=== PATIENT | male | born 1980 | race Caucasian/White ===

== ENCOUNTER 2024-06-19 16:40 | Emergency (ER) | payer SELFPAY ==
[~2024-06-19] VITALS: Ht 175.2 cm; Wt 53.1 kg
[~2024-06-19 16:40] MED LIST: AMOXICILLIN500 M2 PO; ANAPROX DS550 MG PO; CLINDAMYCIN HC300 MG PO; HYDROCODONE BIT1 T11 PO; NAPROSYN500 MG PO; NORCO 10-325 T1 EACH PO; PENICILLIN VK500 MG PO; Peridex 473 ML473 ML PO
[2024-06-19] MEDS ORDERED: MORPHINE Sulfate 2 MG/ML SYR IV ONE (17:35)
[2024-06-19] MEDS ORDERED: Ketorolac Tromethamine 15 MG/ML VIAL IV ONE (17:35)
[2024-06-19 17:49] LABS: MEAN CELL VOLUME 72.6 fl (80.0-94.0); MEAN CORPUSCULAR HGB 18.3 pg (27.0-31.0); MEAN CORPUSCULAR HGB CONC 25.1 g/dl (33.0-37.0); MEAN PLATELET VOLUME 10.4 fl (9.6-12.3); PLATELET COUNT AUTOMATED 555 10*3/uL (130-400); RED BLOOD COUNT 2.63 10*6/uL (4.50-5.90); RED CELL DISTRI WIDTH 17.8 % (0-14.5); WHITE BLOOD COUNT 9.3 10*3/uL (4.8-10.8)
[2024-06-19 17:52] LABS: HEMATOCRIT 19.1 % (42.0-52.0); MANUAL DIFF REFLEX YES
[2024-06-19 18:10] LABS: ALKALINE PHOSPHATASE 362 U/L (46-116); BUN 9 mg/dl (9-23); CHLORIDE 101 mmol/L (98-107); POTASSIUM 4.1 mmol/L (3.4-5.1); SGPT/ALT 22 U/L (5-49); TOTAL PROTEIN 7.4 gm/dL (6.0-8.0)
[2024-06-19] MEDS ORDERED: IOHEXOL 300 MG/ML 100 ML VIAL IV ONE (18:10)
[2024-06-19 18:11] LABS: MICROCYTOSIS SLIGHT; PLATELET SUFFICIENCY HIGH (NORMAL); ROULEAUX MARKED; TOTAL CELLS COUNTED 100 #CELLS
[2024-06-19] MEDS ORDERED: IOHEXOL 300 MG/ML 100 ML VIAL ONE (18:22)
[2024-06-19] MEDS ORDERED: Nicotine 21 MG PATCH T ONE (21:45)
[2024-06-19] MEDS ORDERED: SODIUM CHLORIDE 0.9% 500 ML IV ONE (23:19)
[2024-06-19 23:30] VITALS: BP 129/73
[2024-06-19 23:45] VITALS: BP 129/73
[2024-06-20] VITALS: BP 139/73
[2024-06-20 00:15] VITALS: BP 128/76
[2024-06-20] MEDS ORDERED: HYDROmorphone Hydrochloride 1 MG/ML SYR IV ONE (00:25)
[2024-06-20 01:00] VITALS: BP 130/77
[2024-06-20 01:30] VITALS: BP 136/70
[2024-06-20 01:45] VITALS: BP 135/64
== END 2024-06-20 01:52 | disposition short-term general hospital (02) ==
LOC: ED 16:40
PROVIDERS: Emergency Medicine
DX: N28.89 Other specified disorders of kidney and ureter (principal); E27.8 Other specified disorders of adrenal gland; D64.9 Anemia, unspecified; M84.459A Pathological fracture, hip, unspecified, initial encounter for fracture; M54.50 Low back pain, unspecified; R10.9 Unspecified abdominal pain; R91.1 Solitary pulmonary nodule; F17.200 Nicotine dependence, unspecified, uncomplicated; Z91.030 Bee allergy status; Z98.890 Other specified postprocedural states